=== PATIENT | male | born 2000 | race American Indian/Alaskan Native ===

== ENCOUNTER 2019-07-03 14:28 | Emergency (ER) | payer SELFPAY ==
[~2019-07-03] VITALS: Ht 180.3 cm; Wt 81.0 kg
[2019-07-03 14:30] VITALS: BP 125/71
[2019-07-03] MEDS ORDERED: IBUP-1984 PO (15:58)
== END 2019-07-03 16:20 | disposition home or self-care (01) ==
LOC: ER 14:28
DX: M25.561 Pain in right knee (principal); Z88.1 Allergy status to other antibiotic agents; Z88.8 Allergy status to other drugs, medicaments and biological substances; X50.1XXA Overexertion from prolonged static or awkward postures, initial encounter; Y93.89 Activity, other specified; Y92.69 Other specified industrial and construction area as the place of occurrence of the external cause; Y99.9 Unspecified external cause status
CPT/HCPCS: 29505; 73564; 99283